=== PATIENT | female | born 2005 | race African-American/Black ===

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

== ENCOUNTER 2024-02-04 16:50 | Emergency (ER) | payer MEDICAID, MEDICARE ==
[~2024-02-04] VITALS: Ht 167.6 cm; Wt 82.0 kg
[~2024-02-04 16:50] MED LIST: CEPH500C2 MT; IBUP-2028 MT
[2024-02-04 16:55] VITALS: O2SAT 100
[2024-02-04 17:30] LABS: BASOPHILS % 0.6 % (0.0-2.0); DIFFERENTIAL COMMENT 0; EOSINOPHILS % 0.7 % (0.0-5.0); HEMATOCRIT. 35.8 % (36.0-48.0); HEMOGLOBIN. 11.9 g/dL (12.0-16.0); LYMPHOCYTES % 32.9 % (20.0-50.0); MEAN CORPUSCULAR HEMOGLOBIN 25.5 pg (28.0-32.0); MEAN CORPUSCULAR HGB CONC 33.3 g/dL (31.0-37.0); MEAN CORPUSCULAR VOLUME 76.5 fL (81.0-99.0); MEAN PLATELET VOLUME 7.4 fl (7.4-10.4); MONOCYTES % 9.3 % (2.0-8.0); NEUTROPHILS % 56.5 % (40.0-76.0); PLATELET 524 x1000/uL (130-400); RED BLOOD CELL COUNT 4.67 mill/uL (4.2-5.4); RED CELL DISTRIBUTION WIDTH 13.3 % (11.6-14.6); WHITE BLOOD COUNT 8.2 x1000/uL (4.5-11.0)
[2024-02-04 17:38] LABS: CHLORIDE 104 mEq/L (98-107); POTASSIUM 3.5 mEq/L (3.5-5.1); SODIUM 137 mEq/L (136-145)
[2024-02-04 17:40] LABS: CARBON DIOXIDE 24 mEq/L (21-32)
[2024-02-04 17:41] LABS: CALCIUM 9.8 mg/dL (8.7-10.4)
[2024-02-04 17:45] LABS: CREATININE 0.8 mg/dL (0.6-1.0)
[2024-02-04 17:46] LABS: GLUCOSE 122 mg/dL (70-105); UREA NITROGEN BLOOD 15 mg/dL (9-23)
[2024-02-04 17:47] LABS: ALANINE AMINOTRANSFERASE 11 IU/L (10-49); ALBUMIN 4.4 g/dL (3.2-4.8); ASPARTATE AMINOTRANSFERASE 19 IU/L (<34)
[2024-02-04 17:48] LABS: BILIRUBIN DIRECT < 0.1 mg/dL (<=3.0); BILIRUBIN TOTAL 0.3 mg/dL (0.1-1.0); PROTEIN TOTAL 7.6 g/dL (6.0-8.3)
[2024-02-05 00:42] LABS: CLARITY URINE CLOUDY (CLEAR); COLOR URINE YELLOW (YELLOW); GLUCOSE URINE NEGATIVE (NEGATIVE); KETONES URINE NEGATIVE (NEGATIVE); LEUKOCYTE ESTERASE URINE TRACE (NEGATIVE); NITRITE URINE NEGATIVE (NEGATIVE); OCCULT BLOOD URINE NEGATIVE (NEGATIVE); PH URINE >=9.0 (4.5-8.0); PROTEIN URINE 1+ (NEGATIVE)
[2024-02-05] MEDS: ONDANSETRON HCL 4MG/2ML INJ IV STA (01:12)
[2024-02-05] MEDS: FAMOTIDINE 20MG/2ML VIAL IV ONE (01:12)
[2024-02-05] MEDS: SODIUM CHLORIDE 0.9% 1,000 ML IV ONE (01:12)
[2024-02-05] MEDS: KETOROLAC 30MG/ML VIAL IV STA (01:12)
[2024-02-05 01:28] LABS: BACTERIA URINE 1+; RBC URINE NONE SEEN /hpf (0-2); SQUAMOUS EPITHELIAL CELL URINE 1+ /lpf (RARE/1+)
[2024-02-05 01:32] LABS: TROPONIN I HIGH SENSITIVITY < 4 ng/L (3.0-34)
[2024-02-05] MEDS ORDERED: ONDA4TAB50 MT (02:40)
[2024-02-05] MEDS ORDERED: ACET-2708 MT (02:40)
[2024-02-05] MEDS ORDERED: FAMO-135 MT (02:40)
[2024-02-05] MEDS ORDERED: NITR-87 MT (03:10)
[2024-02-05] MEDS: LACTATED RINGERS 1,000 ML IV SCH (03:55)
[2024-02-05] MEDS: ONDANSETRON HCL 4MG/2ML INJ IV ONE (03:55)
[2024-02-05 04:15] VITALS: BP 118/75; PULSE 86; RESP 17; TEMP 97.6
== END 2024-02-05 04:29 | disposition home or self-care (01) ==
LOC: ER 16:50
DX: R42 Dizziness and giddiness (principal); R11.2 Nausea with vomiting, unspecified; R10.9 Unspecified abdominal pain; R94.31 Abnormal electrocardiogram [ECG] [EKG]
CPT/HCPCS: 99285; 80076; 80048; 81025; 83690; 85025; 36415 ×2; 74176; 96374; 96361; 96375; 71045; 81003; 85379; 84484; 93005; 96376; J3490; J1885; J2405; J7030